=== PATIENT | female | born 1965 | race Caucasian/White ===

== ENCOUNTER → 2017-11-14 | Outpatient (CLI) | payer BC ==
[2017-11-14 14:30] VITALS: BP 136/79; PULSE 82; RESP 16; TEMP 97
--- NOTE | 2017-11-14 15:11 | P.HPOB ---
History of Present Illness H&P Date: 11/14/17 Chief Complaint: The patient is here for her routine gynecologic exam and mammogram. This is a 52-year-old G to P2 with LMP of 1992. She is status post KUSHAL with unilateral oophorectomy for "uterine cancer ." She states that has been about 5 years since her last pelvic exam. She is without gynecologic complaints. Review of Systems The patient states her weight can fluctuate by +/-20 pounds. She denies respiratory, cardiac, or G.I. problems. Past Medical History Past Medical History: Thyroid Disorder (Hypothyroid) Additional Past Medical History / Comment(s): Chronic back pain. 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 She had a KUSHAL with unilateral oophorectomy for some type of uterine cancer in 1992. Past Surgical History: Cholecystectomy, Hysterectomy (KUSHAL with unilateral correct me in 1992) Additional Past Surgical History / Comment(s): Partial thyroidectomy. Past Psychological History: No Psychological Hx Reported Smoking Status: Never smoker Past Alcohol Use History: None Reported Past Drug Use History: None Reported Additional History: She has been a since 2016 and is not seen anybody at this time. 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 - Past Family History Mother Additional Family Medical History / Comment(s): Heart valve problems Medications and Allergies Home Medications Medication Instructions Recorded Confirmed Type Famotidine [Pepcid] 20 mg PO DAILY 11/14/17 11/14/17 History Levothyroxine Sodium [Synthroid] DAILY 11/14/17 11/14/17 History Meloxicam [Mobic] 15 mg PO DAILY 11/14/17 11/14/17 History Allergies Allergy/AdvReac Type Severity Reaction Status Date / Time No Known Allergies Allergy Verified 11/14/17 15:04 Exam - Vital Signs Vital signs: Vital Signs Temp Pulse Resp BP 11/14/17 14:23 97.0 F L 82 16 136/79 Height 5 feet 2 1/4 inch, weight 212 pounds, BMI 39. This is a well-developed well-nourished heavyset white female who is alert and oriented times 3 in no acute distress. HEENT: Within normal limits. NECK: Supple without mass or thyromegaly. CHEST AND LUNGS: Clear to auscultation. HEART: Regular rate and rhythm. BREASTS: Are without mass or discharge. AXILLARY EXAM: Negative for adenopathy. BACK: Negative for CVA tenderness. ABDOMEN: Soft, nontender, without palpable masses. PELVIC EXAM: External genitalia appears normal with minimal atrophy. Vagina appears normal with mild atrophy. There is no evidence of prolapse. Bimanual examination is negative for mass or tenderness. RECTAL EXAM: Rectovaginal exam is negative for mass or tenderness and is negative for occult blood. EXTREMITIES: Nontender. IMPRESSION: 1. 52 year old female who is status post KUSHAL and unilateral oophorectomy for "uterine cancer" in 1992. 2. Normal gynecologic exam. PLAN: 1. Pap smear of the vaginal cuff was obtained because of her history of uterine cancer. 2. Self breast awareness was discussed. 3. Screening mammogram will be done today. 4. The patient states she will obtain records from her hysterectomy including the operative report and pathology report. 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 We will use these records to determine the frequency of Pap smear testing or if they can be discontinued altogether. 5. Osteoporosis prevention was discussed. 6. She will return in one year.
--- NOTE | 2017-11-15 10:26 | MM ---
Reason for exam: screening (asymptomatic). Last mammogram was performed 6 years ago. History: Patient is postmenopausal and has history of other cancer at age 28. Family history of breast cancer in maternal grandmother. Physical Findings: A clinical breast exam by your physician is recommended on an annual basis and results should be correlated with mammographic findings. MG Screening Mammo w CAD Bilateral CC and MLO view(s) were taken. Prior study comparison: November 09, 2011, bilateral digital screening mammo w/CAD. April 26, 2005, bilateral screening mammogram w/CAD. There are scattered fibroglandular densities. There is no discrete abnormality. No significant changes when compared with prior studies. ASSESSMENT: Negative, BI-RAD 1 RECOMMENDATION: Routine screening mammogram of both breasts in 1 year.
== END | disposition home or self-care (01) ==
LOC: WWCWWP 14:11
PROVIDERS: ATTEND Obstetrics & Gynecology
DX: Z12.31 Encounter for screening mammogram for malignant neoplasm of breast (principal)
CPT/HCPCS: 77067

== ENCOUNTER → 2019-02-26 | Outpatient (CLI) | payer BC ==
[2019-02-26 16:01] LABS: Basophils % (A) 0 %; Eosinophils # (A) 0.1 k/uL (0-0.7); Eosinophils % (A) 2 %; HGB 14.3 gm/dL (11.4-16.0); Lymphocytes # (A) 1.7 k/uL (1.0-4.8); Lymphocytes % (A) 26 %; MCH 29.8 pg (25.0-35.0); MCHC 32.6 g/dL (31.0-37.0); MCV 91.4 fL (80.0-100.0); Mean Platelet Volume 7.9; Monocytes # (A) 0.4 k/uL (0-1.0); Monocytes % (A) 6 %; Neutrophils # (A) 4.2 k/uL (1.3-7.7); Neutrophils % (A) 64 %; Platelet Count 208 k/uL (150-450); RBC 4.81 m/uL (3.80-5.40); RDW 13.8 % (11.5-15.5); WBC 6.5 k/uL (3.8-10.6)
[2019-02-26 17:05] LABS: Erythrocyte Sedimentation Rate 17 mm/hr (0-20)
[2019-02-27 13:02] LABS: Avocado Class CLASS 0; Banana IgE Class CLASS 0; Beef IgE <0.35 kU/L (<0.35); Beef IgE Class CLASS 0; Chicken IgE Class CLASS 0; Cow's Milk IgE Class CLASS 0; Egg White IgE <0.35 kU/L (<0.35); Hazelnut IgE <0.35 kU/L (<0.35); Hazelnut IgE Class CLASS 0; Kiwi IgE <0.35 kU/L (<0.35); Kiwi IgE Class CLASS 0; Latex IgE Class CLASS 0; Peanut IgE <0.35 kU/L (<0.35); Pork IgE Class CLASS 0; Potato IgE <0.35 kU/L (<0.35); Potato IgE Class CLASS 0; Soybean IgE <0.35 kU/L (<0.35); Yeast Bakers/Brew IgE <0.35 kU/L (<0.35); Yeast Bakers/Brew IgE Class CLASS 0
[2019-03-01 12:35] LABS: Beef IgG 10.7 mcg/mL (< 2.0); Chicken Meat IgG 3.4 mcg/mL (< 2.0); Corn IgG 5.7 mcg/mL (< 2.0); Cow's Milk IgG 52.9 mcg/mL (< 2.0); Peanut IgG 2.8 mcg/mL (< 2.0); Pork IgG 4.9 mcg/mL (< 2.0); Potato IgG 3.5 mcg/mL (< 2.0); Soybean IgG 4.3 mcg/mL (< 2.0); Tomato IgG 3.8 mcg/mL (< 2.0); Wheat IgG 7.3 mcg/mL (< 2.0)
== END | disposition home or self-care (01) ==
LOC: LABWHC1 15:04
PROVIDERS: ATTEND Otolaryngology
DX: L50.9 Urticaria, unspecified (principal); R21 Rash and other nonspecific skin eruption
CPT/HCPCS: 36415; 85025; 85652; 86001; 86003; 86038; 86140

== ENCOUNTER → 2019-02-26 | Outpatient (CLI) | payer BC ==
[2019-02-26 14:02] VITALS: BP 123/70; PULSE 71; RESP 18; TEMP 97.7; BMI 37.6
--- NOTE | 2019-02-26 14:47 | P.HPOB ---
History of Present Illness H&P Date: 02/26/19 Chief Complaint: The patient is here for her routine gynecologic exam and ma mmogram. This is a 54-year-old with an LMP of 1993. The patient is status post KUSHAL for MAYLIN 3. She states she has had fairly regular pelvic exams and Pap smears since the hysterectomy. She denies any Pap smear problems. Pap smear done on 11/14/2017 here was negative. She is without gynecologic complaints and denies any hot flashes. Review of Systems The patient has lost 6 pounds over the last year. She denies respiratory, cardiac, or G.I. problems. Past Medical History Past Medical History: Thyroid Disorder Additional Past Medical History / Comment(s): Hypothyroidism. Chronic back pain. 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 She had a KUSHAL for MAYLIN 3 in 1993. History of Any Multi-Drug Resistant Organisms: None Reported Past Surgical History: Section, Cholecystectomy, Hysterectomy Additional Past Surgical History / Comment(s): Partial thyroidectomy; right foot tendon repair 07/2018; KUSHAL 1993. Past Anesthesia/Blood Transfusion Reactions: No Reported Reaction Past Psychological History: No Psychological Hx Reported Smoking Status: Never smoker Past Alcohol Use History: Rare (6 per year) Past Drug Use History: None Reported Additional History: She has been a since 2015 and has not been seen anybody since that time. 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 - Past Family History Mother Additional Family Medical History / Comment(s): Heart valve problems Father Family Medical History: AFIB, Hypertension Medications and Allergies Home Medications Medication Instructions Recorded Confirmed Type Famotidine [Pepcid] 20 mg PO QAM 11/14/17 02/26/19 History Levothyroxine Sodium [Synthroid] 75 mcg PO QAM 11/14/17 02/26/19 History Meloxicam [Mobic] 7.5 mg PO QAM 11/14/17 02/26/19 History Cholecalciferol (Vitamin D3) 2,000 unit PO QAM 02/26/19 02/26/19 History [Vitamin D3] Allergies Allergy/AdvReac Type Severity Reaction Status Date / Time No Known Allergies Allergy Verified 02/26/19 13:50 Exam Vital Signs Temp Pulse Resp BP Pulse Ox 02/26/19 13:52 97.7 F 71 18 123/70 97 Intake and Output 02/25/19 02/26/19 02/26/19 22:59 06:59 14:59 Other: Weight 93.44 kg Height 5'2", weight 206 pounds, BMI 37.7. This is a well-developed well-nourished weight female who is alert and oriented times 3 in no acute distress. HEENT: Within normal limits. NECK: Supple without mass or thyromegaly. CHEST AND LUNGS: Clear to auscultation. HEART: Regular rate and rhythm. BREASTS: Are without mass or discharge. AXILLARY EXAM: Negative for adenopathy. BACK: Negative for CVA tenderness. ABDOMEN: Soft, nontender, without palpable masses. PELVIC EXAM: External genitalia appears normal. Vagina appears normal with minimal atrophy. There is no evidence of prolapse. Bimanual examination is negative for mass or tenderness. RECTAL EXAM: Rectovaginal exam is negative for mass or tenderness and is negative for occult blood. EXTREMITIES: Nontender. IMPRESSION: 1. 54 year old menopausal female status post KUSHAL for MAYLIN 3, with normal gynecologic exam. PLAN: 1. Since we have obtained the records with the indication for her KUSHAL and since she had no history of adjuvant therapy, no history of recurrence for more than 20 years, and then negative Pap smear on 11/14/2017, Pap smears have been discontinued. 2. Self breast awareness was discussed with the patient. 3. Screening mammogram will be done today. 4. Osteoporosis prevention was discussed. I have stressed the importance of adequate calcium, vitamin D and regular exercise. Recommended amounts of calcium and vitamin D were also discussed. 5. She was advised to return in one year for her annual well woman exam.
--- NOTE | 2019-02-28 10:43 | MM ---
Reason for exam: screening (asymptomatic). Last mammogram was performed 1 year and 3 months ago. History: Patient is postmenopausal and has history of other cancer at age 28. Family history of breast cancer in maternal grandmother. Physical Findings: A clinical breast exam by your physician is recommended on an annual basis and results should be correlated with mammographic findings. MG 3D Screening Mammo W/Cad Bilateral CC and MLO view(s) were taken. Prior study comparison: November 14, 2017, bilateral MG screening mammo w CAD. November 09, 2011, bilateral digital screening mammo w/CAD. There are scattered fibroglandular densities. Benign appearing bilateral calcifications. No suspicious abnormality. No significant changes when compared with prior studies. ASSESSMENT: Benign, BI-RAD 2 RECOMMENDATION: Routine screening mammogram of both breasts in 1 year.
== END ==
LOC: WWCWWP 13:30
PROVIDERS: ATTEND Obstetrics & Gynecology
DX: Z12.31 Encounter for screening mammogram for malignant neoplasm of breast (principal)
CPT/HCPCS: 77063; 77067

== ENCOUNTER → 2020-08-04 | Outpatient (CLI) | payer BC ==
[2020-08-04 13:54] VITALS: BP 149/78; PULSE 84; RESP 16; TEMP 97.9
--- NOTE | 2020-08-04 14:27 | P.HPOB ---
History of Present Illness H&P Date: 08/04/20 Chief Complaint: The patient is here for her routine gynecologic exam and ma mmogram. This is a 55-year-old with an LMP of 1993. The patient is without gynecologic complaints. She is status post KUSHAL for MAYLIN-3 in 1993. Review of Systems The patient's weight has been stable over the last year. She denies respiratory, cardiac, or G.I. problems. Past Medical History Past Medical History: Thyroid Disorder Additional Past Medical History / Comment(s): Hypothyroidism. Multiple food and environmental ALLERGIES. Chronic back pain. 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 She had a KUSHAL for MAYLIN 3 in 1993. History of Any Multi-Drug Resistant Organisms: None Reported Past Surgical History: Section, Cholecystectomy, Hysterectomy Additional Past Surgical History / Comment(s): Partial thyroidectomy; right foot tendon repair 07/2018; KUSHAL 1993. Past Anesthesia/Blood Transfusion Reactions: No Reported Reaction Past Psychological History: No Psychological Hx Reported Smoking Status: Never smoker Past Alcohol Use History: Rare (4 per year) Past Drug Use History: None Reported Additional History: She has been a since 2015 and is not sexually active. 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. - Past Family History Mother Additional Family Medical History / Comment(s): Heart valve problems Father Family Medical History: AFIB, Hypertension Medications and Allergies Home Medications Medication Instructions Recorded Confirmed Type Famotidine [Pepcid] 20 mg PO QAM 11/14/17 08/04/20 History Levothyroxine Sodium [Synthroid] 75 mcg PO QAM 11/14/17 08/04/20 History Meloxicam [Mobic] 7.5 mg PO QAM 11/14/17 08/04/20 History Cholecalciferol (Vitamin D3) 2,000 unit PO QAM 02/26/19 08/04/20 History [Vitamin D3] Multivitamin [Multivitamins Adult 1 each PO DAILY 08/04/20 08/04/20 History Gummies] Allergies Allergy/AdvReac Type Severity Reaction Status Date / Time Sulfa (Sulfonamide AdvReac Rash/Hives Unverified 08/04/20 13:50 Antibiotics) Exam Vital Signs Temp Pulse Resp BP Pulse Ox 08/04/20 13:52 97.9 F 84 16 149/78 98 Intake and Output 01/18/21 01/19/21 01/19/21 22:59 06:59 14:59 Other: Weight 92.533 kg Height 5 feet 2 inches, weight 204 pounds, BMI 37.3. This is a well-developed well-nourished white female who is alert and oriented times 3 in no acute distress. HEENT: Within normal limits. NECK: Supple without mass or thyromegaly. CHEST AND LUNGS: Clear to auscultation. HEART: Regular rate and rhythm. BREASTS: Are without mass or discharge. AXILLARY EXAM: Negative for adenopathy. BACK: Negative for CVA tenderness. ABDOMEN: Soft, nontender, without palpable masses. PELVIC EXAM: External genitalia appears normal with mild atrophy. Vagina appears normal mild atrophy. There is no evidence of prolapse. Bimanual examination is negative for mass or tenderness. RECTAL EXAM: Rectovaginal exam is negative for mass or tenderness and is negative for occult blood. EXTREMITIES: Nontender. IMPRESSION: 1. 55-year-old menopausal female status post KUSHAL for MAYLIN-3 of the cervix in 1993 with normal gynecologic exam. PLAN: 1. Since it has been more than 20 years since her hysterectomy for MAYLIN-3, Pap smears will be discontinued. She understands she should continue to have yearly pelvic exams. 2. Self breast awareness was discussed with the patient. 3. Screening mammogram will be done today. 4. Osteoporosis prevention was discussed. I have stressed the importance of adequate calcium, vitamin D and regular exercise. Recommended amounts of calcium and vitamin D were also discussed. 5. We have discussed colorectal screening. She has elected to have a regular Cologuard testing instead of screening colonoscopies. She has had this done in the past and will continue to do it through her PCP. 6. She was advised to return in one year for her annual well woman exam.
--- NOTE | 2020-08-05 11:04 | MM ---
Reason for exam: screening (asymptomatic). Last mammogram was performed 1 year and 5 months ago. History: Patient has history of other cancer at age 28. Family history of breast cancer in maternal grandmother at age 80. Physical Findings: A clinical breast exam by your physician is recommended on an annual basis and results should be correlated with mammographic findings. MG 3D Screening Mammo W/Cad Bilateral CC and MLO view(s) were taken. XCCL view(s) were taken of the left breast. Prior study comparison: February 26, 2019, bilateral MG 3d screening mammo w/cad. November 14, 2017, bilateral MG screening mammo w CAD. There are scattered fibroglandular densities. No significant changes when compared with prior studies. ASSESSMENT: Benign, BI-RAD 2 RECOMMENDATION: Routine screening mammogram of both breasts in 1 year.
== END | disposition home or self-care (01) ==
LOC: WWCWWP 13:31
PROVIDERS: ATTEND Obstetrics & Gynecology
DX: Z12.31 Encounter for screening mammogram for malignant neoplasm of breast (principal)
CPT/HCPCS: 77063; 77067